=== PATIENT | male | born 1955 | race Caucasian/White ===

== ENCOUNTER 2018-12-03 08:33 | Inpatient (IN) | payer MEDICARE, OTHER ==
[2018-12-03] MEDS ORDERED: ALPRAZolam 0.5 MG TAB PO PRN (10:08)
[2018-12-03] MEDS ORDERED: NITROGLYCERIN SL TABS 0.4 MG TAB SUBLINGUAL PRN ×2 (10:08→11:53)
[2018-12-03] MEDS ORDERED: ATORVASTATIN 80 MG TAB PO STA (10:08)
[2018-12-03] MEDS ORDERED: ASPIRIN 325 MG TAB PO STA (10:08)
[2018-12-03] MEDS ORDERED: ALPRAZolam 0.25 MG TAB PO PRN (10:08)
[2018-12-03] MEDS ORDERED: SODIUM CHLORIDE 0.9% 1,000 ML in EMPTY BAG 1 BAG IV ONE (10:08)
[2018-12-03] MEDS ORDERED: LIDOCAINE 1% INJ 10MG/ML (20 ML MDV) SQ ONE (11:20)
[2018-12-03] MEDS ORDERED: HYDROmorphone 1 MG/ML 1 ML SYRINGE IVP ONE (11:20)
[2018-12-03] MEDS ORDERED: NITROGLYCERIN 1000MCG/10ML SYRINGE INTRACORON ONE ×2 (11:26→11:41)
[2018-12-03] MEDS ORDERED: BIVALIRUDIN 250 MG in SODIUM CHLORIDE 0.9% 50 ML IV ONE (11:26)
[2018-12-03] MEDS ORDERED: BIVALIRUDIN BOLUS 250 MG/50 ML IV ONE (11:26)
[2018-12-03] MEDS ORDERED: MIDAZOLAM (PF) 2 MG/2 ML VIAL IVP ONE (11:37)
[2018-12-03] MEDS ORDERED: CLOPIDOGREL 75 MG TAB PO ONE (11:41)
[2018-12-03] MEDS ORDERED: IOPAMIDOL-370 100ML BTL INJ ONE (11:43)
[2018-12-03] MEDS ORDERED: ZOLPIDEM 5 MG TAB PO PRN (11:53)
[2018-12-03] MEDS ORDERED: RX INFO: IV CONTRAST WAS GIVEN 1 EACH MISC MISCELLANE PRN (11:53)
[2018-12-03] MEDS ORDERED: ATROPINE SULFATE 0.1 MG/ML 10ML SYRINGE IV PRN (11:53)
[2018-12-03] MEDS ORDERED: SODIUM CHLORIDE 0.9% 1,000 ML IV SCH (12:00)
--- NOTE | 2018-12-03 12:17 | PTCA ---
PERCUTANEOUSTRANS CORORONARY ANGIOGRAPHY DATE OF SERVICE: 11/23/2018 PERFORMING PHYSICIAN: Santo Fernandez MD, Social Work Administrator. PROCEDURE PERFORMED: Successful stenting of the PDA branch of circumflex using the 2.5 x 18 mm Xience LATONYA with good angiographic results. INDICATION: This is a 63-year-old gentleman with history of hypertension and dyslipidemia who was experiencing symptoms of shortness of breath. He underwent right and left heart catheterization. The right heart catheterization showed moderate pulmonary hypertension. The left heart catheterization revealed severe disease involving the PDA branch of the left circumflex. He was brought today to undergo a PCI of the PDA. APPROACH: Right common femoral artery. COMPLICATION: None. LEVEL OF SEDATION: Moderate with sedation length of 30 minutes. PROCEDURE DESCRIPTION: Please refer to diagnostic heart catheterization was performed at [facility] for access prescription. Anticoagulation was initiated using Angiomax. Subsequently, I did engage the left main using XB3.5 guide. After that I wired the left circumflex using a whisper wire. I did PTCA ballooning using 2.0 x 12 mm balloon before I deployed 2.5 x 18 mm Xience LATONYA where the stent was positioned under fluoroscopy guidance and deployed under 14 atmospheres for 20 seconds with the following angiogram showing good results. The procedure was completed without any complication. POSTPROCEDURE MANAGEMENT: 1. Dual anti-platelet therapy. 2. Risk factors modifications. 3. Follow up with the patient. DEJAN / JADYN: [id number] /
[2018-12-03] MEDS: MAG HYDROX/AL HYDROX/SIMETH 30 ML CUP PO PRN ×2 (12:20→12:30)
[2018-12-03] MEDS ORDERED: hydrALAZINE HCL 20 MG/ML 1 ML VIAL IVP STA (12:27)
[2018-12-03 12:57] LABS: Glucose,Whole Blood 122 mg/dL (75-99)
[2018-12-03] MEDS: ACETAMINOPHEN TAB 500 MG TAB PO PRN ×2 (14:10→21:17)
[2018-12-03] MEDS ORDERED: ATORVASTATIN 80 MG TAB PO SCH (21:00)
[2018-12-03] MEDS: hydrALAZINE HCL 50 MG TAB PO SCH (21:18)
[2018-12-04] MEDS: IPRATROPIUM-ALBUTEROL 3 ML NEB INHALATION PRN ×2 (00:46→07:40)
[2018-12-04 05:13] VITALS: TEMP 97.8
[2018-12-04 05:26] LABS: Basophils # (A) 0.1 k/uL (0-0.2); Basophils % (A) 1 %; Eosinophils # (A) 0.2 k/uL (0-0.7); Eosinophils % (A) 3 %; HGB 13.2 gm/dL (13.0-17.5); Lymphocytes # (A) 1.8 k/uL (1.0-4.8); Lymphocytes % (A) 19 %; MCH 31.6 pg (25.0-35.0); MCHC 32.2 g/dL (31.0-37.0); MCV 98.1 fL (80.0-100.0); Mean Platelet Volume 7.9; Monocytes # (A) 0.5 k/uL (0-1.0); Monocytes % (A) 5 %; Neutrophils # (A) 6.8 k/uL (1.3-7.7); Neutrophils % (A) 71 %; Platelet Count 178 k/uL (150-450); RBC 4.18 m/uL (4.30-5.90); RDW 14.1 % (11.5-15.5); WBC 9.6 k/uL (3.8-10.6)
[2018-12-04 05:58] LABS: African American GFR (CKD) >90 (>60 ml/min/1.73 sqM); Blood Urea Nitrogen 16 mg/dL (9-20); Calcium 8.8 mg/dL (8.4-10.2); Carbon Dioxide 28 mmol/L (22-30); Glucose 112 mg/dL (74-99)
[2018-12-04 06:09] LABS: Anion Gap 6 mmol/L; Chloride 104 mmol/L (98-107); Potassium 4.3 mmol/L (3.5-5.1); Sodium 138 mmol/L (137-145)
[2018-12-04] MEDS ORDERED: PANTOPRAZOLE 40 MG TABLET PO SCH (07:30)
[2018-12-04 07:52] VITALS: PULSE 65
[2018-12-04] MEDS: hydrALAZINE HCL 50 MG TAB PO SCH (08:30)
[2018-12-04] MEDS ORDERED: hydrALAZINE HCL 50 MG TAB PO SCH (09:00)
[2018-12-04] MEDS ORDERED: METOPROLOL SUCCINATE (ER) 50 MG TAB.ER.24H PO SCH (09:00)
[2018-12-04] MEDS ORDERED: ASPIRIN 325 MG TAB PO SCH (09:00)
[2018-12-04] MEDS ORDERED: PREGABALIN 75 MG CAP PO SCH (09:00)
[2018-12-04] MEDS ORDERED: HYDROCHLOROTHIAZIDE 25 MG TAB PO SCH (09:00)
[2018-12-04 11:14] VITALS: BP 171/76; RESP 34
[2018-12-04] MEDS ORDERED: CLOPIDOGREL 75 MG TAB PO SCH (11:54)
--- NOTE | 2018-12-04 19:01 | DS ---
DISCHARGE SUMMARY ADMISSION DATE: December 03, 2018. DISCHARGE DATE: December 04, 2018 BRIEF HISTORY: This is a 63-year-old gentleman who was experiencing symptoms of shortness of breath with exertion and underwent a heart catheterization at [facility] and that revealed severe disease involving the PDA branch of the RCA of the left circumflex. He was transferred to [facility] where he underwent successful stenting of the PDA branch of the left circumflex with good angiographic results and without any complication. On followup with him today, he seems to be doing good and he is asymptomatic. He is going to be discharged on dual anti-platelet therapy and I will follow up with the patient in the office. MMBIANCA / IJN: [id number] /
== END 2018-12-04 11:25 | disposition home or self-care (01) | DRG 247 ==
LOC: 3SCARD 11:41 → 2SICU 12:06
PROVIDERS: ADMIT Internal Medicine Interventional Cardiology; ATTEND Internal Medicine Interventional Cardiology
PROC: 027034Z Dilation of Coronary Artery, One Artery with Drug-eluting Intraluminal Device, Percutaneous Approach (ICD-10-PCS; principal; 2018-12-03 11:00)
DX: I25.10 Atherosclerotic heart disease of native coronary artery without angina pectoris (principal); I10 Essential (primary) hypertension; Z87.891 Personal history of nicotine dependence; Z79.899 Other long term (current) drug therapy
CPT/HCPCS: 80048; 85025; 94640; 94760; C1874

== ENCOUNTER → 2019-07-18 | Outpatient (CLI) | payer MEDICARE, OTHER | END | disposition home or self-care (01) | LOC: LABPAT 12:53 | PROVIDERS: ATTEND Orthopaedic Surgery | DX: Z01.812 Encounter for preprocedural laboratory examination (principal) | CPT/HCPCS: 87070 ==

== ENCOUNTER 2019-10-28 11:04 | Inpatient (IN) | payer MEDICARE, OTHER ==
[2019-10-27 10:59] VITALS: BMI 33.0
--- NOTE | 2019-10-27 14:20 | HP ---
HISTORY AND PHYSICAL CHIEF COMPLAINT: Right knee pain. HISTORY OF PRESENT ILLNESS: The patient is a 64-year-old retired gentleman who presents with progressive right knee pain secondary to osteoarthrosis despite conservative measures. He has tried previous injections and medications with only partial temporary relief. He notes the pain limits his normal function and activities. PAST MEDICAL HISTORY: Seen for asthma, coronary artery disease, depression, reflux disease, hypercholesterolemia, COPD, and hypertension. PAST SURGICAL HISTORY: Significant for cardiac stent placement, along with multiple procedures on the right arm for necrotizing fasciitis. CURRENT MEDICATIONS: Lisinopril, Prevacid, Celebrex, Lyrica, and Tylenol No.3 along with Plavix. He denies drug allergies. FAMILY HISTORY: Significant for cancer. SOCIAL HISTORY: Significant for previous tobacco use in addition to social alcohol use. 16 POINT REVIEW OF SYSTEMS: Otherwise reviewed and is noncontributory. PHYSICAL EXAMINATION: On examination, the patient is approximately 5 foot 10, 220 pounds of endomorphic habitus. HEENT: Exam is nonfocal. NECK: Supple. He has painless passive motion of the right hip. Straight leg raise is negative. Active motion right knee -14 to 95 degrees of flexion. He is tender about the medial and lateral joint line. He has a moderate effusion. Collaterals are stable, Delbert is negative, Domenic's is equivocal. He has genu varum alignment. His distal neurovascular appears intact in the right lower extremity. Weightbearing notch lateral and Merchant views of the right knee obtained in the office show severe medial compartment narrowing. IMPRESSION: 1. Right knee severe medial compartment osteoarthrosis. 2. History of chronic obstructive pulmonary disease. 3. History of coronary artery disease, status post stenting. RECOMMENDATIONS: I talked to the patient at length regarding his condition and treatment options. At this point, he is quite symptomatic and limited because of pain related to his osteoarthrosis despite conservative measures. After thorough discussion, he opts to proceed with surgery. We will plan to proceed with right total knee arthroplasty. Risks and benefits were discussed at length in layman's terms. Will reinstitute his Plavix postoperatively. MMODL / IJN: [id number] /
[~2019-10-28 11:04] MED LIST: ACETAMINOPHEN TAB 500 MG TAB PO ONE; DEXAMETHASONE SOD PHOSPHATE 10 MG/ML 1 ML VIAL IV ONE; HYDROmorphone 0.5 MG/0.5 ML SYRINGE IVP PRN; LACTATED RINGERS 1,000 ML IV SCH; LIDOCAINE 1% (10MG/ML) FOR IV START INTRADERMA PRN; MELOXICAM 7.5 MG TAB PO ONE; ONDANSETRON 4 MG/2 ML VIAL IVP ONE; SCOPOLAMINE 1.5MG/72HR PATCH TRANSDERM ONE; TRANEXAMIC ACID 1,000 MG in SODIUM CHLORIDE 0.9% 100 ML IVPB ONE
[2019-10-28] MEDS ORDERED: ALBUTEROL NEBULIZED 2.5 MG/3 ML INHALATION ONE (11:42)
[2019-10-28 11:50] LABS: Basophils # (A) 0.1 k/uL (0-0.2); Basophils % (A) 1 %; Eosinophils # (A) 0.3 k/uL (0-0.7); Eosinophils % (A) 3 %; HCT 44.4 % (39.0-53.0); HGB 14.7 gm/dL (13.0-17.5); Lymphocytes # (A) 1.8 k/uL (1.0-4.8); Lymphocytes % (A) 16 %; MCH 32.3 pg (25.0-35.0); MCHC 33.2 g/dL (31.0-37.0); MCV 97.4 fL (80.0-100.0); Mean Platelet Volume 8.2; Monocytes # (A) 0.5 k/uL (0-1.0); Monocytes % (A) 5 %; Neutrophils # (A) 8.3 k/uL (1.3-7.7); Neutrophils % (A) 75 %; Platelet Count 262 k/uL (150-450); RBC 4.55 m/uL (4.30-5.90); RDW 12.5 % (11.5-15.5); WBC 11.1 k/uL (3.8-10.6)
[2019-10-28] MEDS ORDERED: MIDAZOLAM 2 MG/2 ML VIAL IVP ONE (11:54)
[2019-10-28 11:57] LABS: INR 0.9 (<1.2); Prothrombin Time 9.6 sec (9.0-12.0)
[2019-10-28 12:00] LABS: Potassium 4.5 mmol/L (3.5-5.1)
[2019-10-28] MEDS ORDERED: WATER FOR INJECTION, STERILE 10 ML VIAL IV ONE (12:10)
[2019-10-28] MEDS ORDERED: MIDAZOLAM 2 MG/2 ML VIAL ONE (12:10)
[2019-10-28] MEDS ORDERED: fentaNYL (PF) 50 MCG/ML 2 ML AMP ONE (12:10)
[2019-10-28] MEDS ORDERED: SODIUM CHLORIDE 0.9% 100 ML BAG ONE (12:10)
[2019-10-28] MEDS ORDERED: TRANEXAMIC ACID 1,000 MG/10 ML VIAL ONE (12:10)
[2019-10-28] MEDS ORDERED: PROPOFOL 10 MG/ML 20 ML VIAL IV ONE (12:10)
[2019-10-28] MEDS ORDERED: ePHEDrine SULFATE/0.9% NACL/PF 50 MG/5 ML SYRINGE IV ONE (12:10)
[2019-10-28] MEDS ORDERED: ceFAZolin 3,000 MG in SODIUM CHLORIDE 0.9% IRRIGATIO 3,000 ML IRRIGATION ONE (12:20)
[2019-10-28] MEDS ORDERED: ROPIVACAINE 0.2%-NS ON-Q PUMP 1,090 MG, EMPTY PAIN BALL 1 EACH MISCELLANE PRN (12:33)
--- NOTE | 2019-10-28 12:33 | P.ANPRN ---
Procedure Note - Anesthesia - Nerve Block Performed Right Adductor Canal Infusion Date of Procedure: 10/28/19 Procedure Start Time: 11:53 Procedure Stop Time: 12:02 Location of Patient: PreOp Indication: Acute Post-Operative Pain, Requested by Surgeon Sedation Type: Sedate with meaningful contact maintained Preparation: Sterile Prep, Sterile Dressing Position: Supine Catheter: Indwelling Needle Types: Pajunk Needle Gauge: 21 Ultrasound used to visualize needle placement: Yes Ultrasound used to observe medication spread: Yes Blood Aspirated: No Pain Paresthesia on Injection Noted: No Resistance on Injection: Normal Image Stored and Saved: Yes Events: Uneventful and Well Tolerated (ropivacaine 0.5% 20 mls)
[2019-10-28] MEDS ORDERED: ROPIVACAINE 246.25 MG, EPINEPHrine 0.5 MG, KETOROLAC 30 MG, cloNIDine HCL/PF 80 MCG, WA... MISCELLANE ONE ×5 (12:46)
[2019-10-28] MEDS ORDERED: LACTATED RINGERS 1,000 ML IV ONE ×3 (13:04→15:24)
[2019-10-28] MEDS ORDERED: MAGNESIUM HYDROXIDE 2,400 MG/10 ML CUP PO PRN (13:57)
[2019-10-28] MEDS ORDERED: HYDROcodone/APAP 5-325MG 1 EACH TAB PO PRN (13:57)
[2019-10-28] MEDS ORDERED: traMADol 50 MG TAB PO PRN (13:57)
[2019-10-28] MEDS ORDERED: ONDANSETRON 4 MG/2 ML VIAL IVP PRN (13:57)
[2019-10-28] MEDS ORDERED: NALOXONE 0.4 MG/ML 1 ML VIAL IV PRN (13:57)
[2019-10-28] MEDS ORDERED: ACETAMINOPHEN TAB 325 MG TAB PO PRN (13:57)
--- NOTE | 2019-10-28 14:22 | P.OP ---
Date of Procedure: 10/28/19 Preoperative Diagnosis: Right knee severe tricompartmental osteoarthrosis Postoperative Diagnosis: Same Procedure(s) Performed: Right total knee arthroplastycruciate retainingcemented Implants: [employer] Oxinium size 8 cemented femoral component, size 7 cemented tibial component, 9 mm articular surface, 38 mm cemented patellar component. This is a cruciate retaining implant. Anesthesia: regional, local, spinal Surgeon: Serg Sarmiento Instrumentation Designer #1: Jason Ng Estimated Blood Loss (ml): 50 Pathology: other (Bone fragments) Condition: stable Disposition: PACU Indications for Procedure: The patient's a 64-year-old gentleman who presents with progressive right knee pain secondary to osteoporosis despite conservative measures. A discussion of the risks and benefits of operative intervention versus continued conservative measures was made with patient. He opted to proceed with surgery. Operative risks to include infection, neurovascular injury, blood clots, possible component loosening, possible component failure need for subsequent procedures was discussed. Informed consent was obtained. Operative Findings: As below Description of Procedure: The patient was brought to the operating room, and after induction of spinal anesthesia the right lower extremity was prepped and draped in a normal fashion. The tourniquet was inflated to 270 mmHg. A longitudinal incision extending 3 finger breaths above the superior pole of the patella extending to the medial aspect the tibial tubercle was then made. The skin and subcutaneous tissues were divided sharply. Electrocautery was used for hemostasis. A medial parapatellar arthrotomy was then performed. The medial soft tissues to include the superficial and deep portions of the medial collateral ligament as well as the medial hamstring tendons were elevated subperiosteally. The proximal medial tibia osteophytes were carefully removed. The patella was everted. The knee was flexed. A portion of the retropatellar fat pad was excised sharply. The anterior cruciate ligament was sacrificed. A starting hole was made in the distal femur 1 cm anterior to the posterior cruciate origin. An intramedullary femoral guide was gently inserted planning on 5 valgus distal cut with 9 mm distal resection. The cutting block was pinned in place. The distal cut was then made. The posterior referencing sizing guide was utilized. 3 of external rotation was built into the system and verified off the trans- epicondylar axis and the posterior condyles. I felt size 8 was most appr opriate. The cutting block was pinned in place. The anterior, posterior, and chamfer cuts were then made. The bone fragments were removed. The trial size 8 femoral component was then placed and was fully seated. There was good anterior to posterior and medial to lateral fit. The distal peg holes were then drilled. The trial component was then removed. Attention was then paid towards prepar ing the proximal tibia. An extra medullary guide was utilized in line with the tibial shaft and second metatarsal distally. A 3 posterior slope was planned. I planned on 2 mm resection from the medial compartment. The cutting block was pinned in place. The proximal tibial cut was then made. The bone was removed in one fragment. The remnants of the medial and lateral menisci were excised t he capsule junction with electrocautery. The tibia sized most appropriately at size 7. The posterior osteophytes off the distal femur were carefully removed with a curved osteotome. The trial tibial and femoral components were placed along with a 9 millimeters articular surface. I was able to obtain full flexion and extension with good stability with varus and valgus stress. After several flexion and extension cycles, the tibial rotation was marked with electrocautery in line with the medial one third of the tibial tubercle. Attention was then paid towards preparing the patella. A patella reamer was utilized taking this down to 14 mm of bone stock. A good flush cut was made. The patella sized most appropriately at 38 millimeters. The peg holes were then drilled. The trial component was placed. The knee was taken through a range of motion. I had good patellofemoral tracking with no hands technique. The trial components were then removed. The tibia was prepared in the appropriate rotation with appropriate drill and keel punch. The flexion and extension gaps were checked and felt to be symmetric. The posterior soft tissues were injected with ropivacaine. The bony surfaces were prepared with pulsatile lavage and dried. The deep tibial component was then cemented in place and was fully seated. Excess cement was removed. The femoral component was cemented in place and was fully seated. Again excess cement was removed. The trial 9 millimeters surface was then inserted in the knee was put in full extension. The patella component was cemented in place. After the cement had sufficiently hardened, the knee was again taken through a range of motion. Again there was good stability in flexion and extension with varus and valgus stress. The trial articular surface was then removed. The final articular surface was placed and was impacted. Care was taken to avoid any soft tissue interposition. Pulsatile lavage was again utilized. The tourniquet was deflated with approximately 70 minutes total tourniquet time. There was minimal drainage therefore a deep drain was not placed. The medial parapatellar arthrotomy was then closed with #2 Ethibond suture. The subcutaneous tissues were reapproximated interrupted 2-0 Vicryl sutures. The skin was reapproximated with 3-0 subarticular strata fix suture. Skin tape and adhesive was applied. A sterile dressing was applied. The patient was then awoken from sedation and transferred to recovery room in good condition. Blood loss was estimated at 50 milliliters. No complications were incurred. Sponge and needle counts were correct at the end the case. Carlos DAVILA assisted during the major components this case to include exposure, bone resection, and implantation.
--- NOTE | 2019-10-28 15:19 | XR ---
EXAMINATION TYPE: XR knee limited RT DATE OF EXAM: 10/28/2019 CLINICAL HISTORY: Postoperative evaluation Two views of the right knee are submitted. Identified are changes of total knee arthroplasty with femoral and tibial components appearing well seated. Postsurgical soft tissue changes are noted. Alignment is anatomic.
[2019-10-28] MEDS: LACTATED RINGERS 1,000 ML IV SCH ×2 (16:36→23:45)
--- NOTE | 2019-10-28 17:51 | P.CONS ---
History of Present Illness - Reason for Consult Consult date: 10/28/19 Medical management Requesting physician: Serg Sarmiento - Chief Complaint Medical management - History of Present Illness 64-year-old male with PMH of CAD post stent, hypertension and COPD presents to [facility] for elective surgery. He underwent right total knee arthroplasty. [facility] physicians has been consulted for medical management of this patient. Patient was seen and examined. No acute events since surgery. Patient reports slight 2 out of 10 knee pain in his right knee. He otherwise has no complaints. He has not urinated since his surgery. He has not had a bowel movement but states has passed gas. He denies any headache, lower extremity edema, nausea or vomiting, fever or chills, cough, chest pain, shortness of breath or palpitation s, changes in urination or bowel habits. No changes in appetite or weight. He denies any dizziness, numbness/weakness/tingling of the extremities. His vital signs are currently stable on 2 L nasal cannula. CBC shows leukocytosis of 11.1. Review of Systems Pertinent positives and negatives as discussed in HPI, a complete review of systems was performed and all other systems are negative. Past Medical History Past Medical History: Coronary Artery Disease (CAD), Cancer, Chest Pain / Angina, COPD, GERD/Reflux, Hypertension, Liver Disease, Osteoarthritis (OA), Respiratory Disorder Additional Past Medical History / Comment(s): skin ca, hx. necrotizing fascitis right arm with multiple surgeries, (2017) Hepatitis C in remission History of Any Multi-Drug Resistant Organisms: None Reported Past Surgical History: Appendectomy, Heart Catheterization With Stent, Orthopedic Surgery, Tonsillectomy Additional Past Surgical History / Comment(s): right shoulder surg., multiple surgeries on right arm for necrotizing fascitis Past Anesthesia/Blood Transfusion Reactions: No Reported Reaction Date of Last Stent Placement:: November 2018 Past Psychological History: No Psychological Hx Reported Smoking Status: Former smoker Additional Past Alcohol Use History / Comment(s): quit smoking 2017, smoked on & off since age of 13, had quit before, 1ppd Past Drug Use History: Marijuana Additional Drug Use History / Comment(s): daily use for pain - Past Family History Father Family Medical History: Cancer Additional Family Medical History / Comment(s): prostrate cancer Mother Family Medical History: Cancer Medications and Allergies Home Medications Medication Instructions Recorded Confirmed Type Albuterol Inhaler (Mhu) [Ventolin 1 - 2 puff INHALATION RT-Q6H PRN 12/03/18 10/28/19 History Hfa Inhaler (Mhu)] Beclomethasone Dip 80 Mcg/Puff 2 puff INHALATION BID 12/03/18 10/28/19 History [Qvar 80 mcg] Hydrochlorothiazide 25 mg PO DAILY 12/03/18 10/28/19 History Lansoprazole 15 mg PO DAILY 12/03/18 10/28/19 History Metoprolol Succinate [Toprol Xl] 50 mg PO DAILY 12/03/18 10/28/19 History Pregabalin [Lyrica] 150 mg PO BID 12/03/18 10/28/19 History hydrALAZINE HCL 50 mg PO TID 12/03/18 10/28/19 History Clopidogrel [Plavix] 75 mg PO DAILY #90 tab 12/04/18 10/28/19 Rx Atorvastatin [Lipitor] 10 mg PO HS 10/27/19 10/28/19 History Ipratropium/Albuterol Sulfate 2 puff INHALATION BID 10/27/19 10/28/19 History [Combivent Respimat Inhaler] Allergies Allergy/AdvReac Type Severity Reaction Status Date / Time No Known Allergies Allergy Verified 10/28/19 11:30 Physical Exam Vitals: Vital Signs Temp Pulse Pulse Resp BP Pulse Ox 10/28/19 16:52 98.0 F 73 17 160/79 94 L 10/28/19 16:19 59 L 16 159/74 95 10/28/19 16:04 57 L 16 147/72 96 10/28/19 15:36 58 L 16 162/72 94 L 10/28/19 15:06 63 16 142/72 97 10/28/19 14:49 62 16 141/74 94 L 10/28/19 14:34 69 16 146/74 94 L 10/28/19 14:19 97.5 F L 63 16 159/74 92 L 10/28/19 12:06 59 L 16 151/75 100 10/28/19 11:50 61 10/28/19 11:29 97.1 F L 78 18 189/93 94 L Intake and Output 10/28/19 10/28/19 10/28/19 06:59 14:59 22:59 Intake Total 1351 700 Output Total 50 Balance 1301 700 Intake: IV 1351 700 Output: Estimated Blood Loss 50 Other: Weight 105.7 kg 105.7 kg General: [non toxic], [no distress], [appears at stated age] Derm: [warm], [dry] Head: [atraumatic], [normocephalic], [symmetric] Eyes: [EOMI], [no lid lag], [anicteric sclera] Mouth: [no lip lesion], [mucus membranes moist] Cardiovascular: [S1S2 reg], [no murmur], [positive DP pulse bilateral], Lungs: [Slight end expiratory wheezing bilateral], [no rhonchi, no rales] , [no accessory muscle use] Abdominal: [soft], [ nontender to palpation], [no guarding], [no appreciable organomegaly] Ext: [no gross muscle atrophy], [no edema], [no contractures], [right knee wrapped] Neuro: [ CN II-XI grossly intact], [no focal neuro deficits] Psych: [Alert], [oriented], [appropriate affect] Results CBC & Chem 7: 10/28/19 11:36 10/28/19 11:36 Labs: Abnormal Lab Results - Last 24 Hours (Table) 10/28/19 Range/Units 11:36 WBC 11.1 H (3.8-10.6) k/uL Neutrophils # 8.3 H (1.3-7.7) k/uL Assessment and Plan Assessment: Leukocytosis COPD CAD post stent Hypertension Patient has leukocytosis of 11.1 with neutrophilia. He is afebrile with no signs of infection. This is likely reactive. We will continue to monitor for any signs of infection. He will be started on his home medication of Qvar. Start albuterol neb as needed for shortness of breath and wheezing. Supplemental O2 to maintain O2 saturation greater than 92%. We will restart Lipitor and metoprolol for his CAD. His stent was placed in November 2018. His hassock maker is Dr. Rooney. Patient will be on Xarelto for 12 days, will need to discuss with Cardiology Dr. Fernandez regarding continuation of Plavix and/or Aspirin during that time. His blood pressure is 160/79. He will be continued on hydrochlorothiazide, metoprolol and hydralazine. His vitals are be monitored and medications adjusted as necessary. DVT prophylaxis: [Xarelto] Discussed with: [Patient] Anticipated discharge: [1-2 days] Anticipated discharge place: [Home] A total of [35] minutes was spent on the care of this complex patient more than 50% of the time was spent in counseling and care coordination. Patient names his Carmen decision maker if he can't make decisions for himself. Patient would like to be FULL CODE.
[2019-10-28] MEDS: SENNOSIDES-DOCUSATE SODIUM 1 EACH TAB PO SCH (20:19)
[2019-10-28] MEDS: hydrALAZINE HCL 50 MG TAB PO SCH (20:19)
[2019-10-28] MEDS: PREGABALIN 75 MG CAP PO SCH (20:19)
[2019-10-28] MEDS: ATORVASTATIN 10 MG TAB PO SCH (20:19)
[2019-10-28] MEDS: HYDROmorphone 0.5 MG/0.5 ML SYRINGE IVP PRN (20:20)
[2019-10-28] MEDS: FLUTICASONE 110 MCG INHALER INHALATION SCH (21:01)
[2019-10-28] MEDS: ALBUTEROL NEBULIZED 2.5 MG/3 ML INHALATION PRN (21:01)
--- NOTE | 2019-10-29 06:42 | P.PN ---
Progress Note - Text Progress Note Date: 10/29/19 The patient is doing well status post total knee replacement. Pain is well con trolled by a combination of local anesthetic infusion through the adductor canal catheter and oral analgesics however his pain gets worse with weightbearing activities. I asked the patient to request a [place] half an hour before his scheduled physical therapy to help with his pain during physical therapy session.. There are no signs of infection around the catheter skin entry site. The local anesthetic infusion will be continued as per protocol.
[2019-10-29] MEDS: PANTOPRAZOLE 40 MG TABLET PO SCH (07:49)
[2019-10-29] MEDS: hydrALAZINE HCL 50 MG TAB PO SCH ×3 (07:50→21:43)
[2019-10-29] MEDS: RIVAROXABAN 10 MG TAB PO SCH (07:51)
[2019-10-29] MEDS: METOPROLOL SUCCINATE (ER) 50 MG TAB.ER.24H PO SCH (07:51)
[2019-10-29] MEDS: HYDROCHLOROTHIAZIDE 25 MG TAB PO SCH (07:51)
[2019-10-29] MEDS: PREGABALIN 75 MG CAP PO SCH ×2 (07:51→21:43)
[2019-10-29] MEDS: HYDROcodone/APAP 5-325MG 1 EACH TAB PO PRN ×3 (07:52→21:43)
[2019-10-29 08:01] LABS: Basophils % (A) 0 %; Eosinophils % (A) 0 %; HCT 37.9 % (39.0-53.0); HGB 11.9 gm/dL (13.0-17.5); Lymphocytes # (A) 0.9 k/uL (1.0-4.8); Lymphocytes % (A) 6 %; MCH 31.3 pg (25.0-35.0); MCHC 31.4 g/dL (31.0-37.0); MCV 99.5 fL (80.0-100.0); Mean Platelet Volume 8.2; Monocytes # (A) 0.7 k/uL (0-1.0); Monocytes % (A) 5 %; Neutrophils # (A) 12.9 k/uL (1.3-7.7); Neutrophils % (A) 88 %; Platelet Count 192 k/uL (150-450); RBC 3.81 m/uL (4.30-5.90); RDW 12.6 % (11.5-15.5); WBC 14.6 k/uL (3.8-10.6)
[2019-10-29] MEDS: ALBUTEROL NEBULIZED 2.5 MG/3 ML INHALATION PRN ×3 (08:22→20:25)
[2019-10-29] MEDS: FLUTICASONE 110 MCG INHALER INHALATION SCH ×2 (08:23→20:25)
--- NOTE | 2019-10-29 10:56 | P.PN ---
Subjective Progress Note Date: 10/29/19 Principal diagnosis: arthritis Patient is a 64-year-old male with known coronary artery disease last in November [address] Fernandez, COPD, and hypertension who presented for elective total knee arthroplasty. He tolerated the procedure well. He is struggling with some postoperative pain. Patient seen and examined at bedside. He is having some pain in his knee. He states that his pain is an 8-9 out of 10 currently but the [place] did help s omewhat. He reports that the majority of his pain is from a cramp that starts in his buttock and goes to his anemia. He also has another cramp in his leg. He has a history of sciatica and does take Lyrica on a chronic basis. He was wheezing significantly on his walk with physical therapy, however he states that this is typical for his COPD and is unchanged. He denies any chest pain. No nausea, headache, or diarrhea. General: non toxic, no distress, appears at stated age, obese Derm: Dressing in place over right knee, warm, dry Head: atraumatic, normocephalic, symmetric Eyes: EOMI, no lid lag, anicteric sclera Mouth: no lip lesion, mucus membranes moist Cardiovascular: S1S2 reg, no murmur, positive posterior tibial pulse bilateral, Lungs: Ease bilateral, no rhonchi, no rales , no accessory muscle use Abdominal: soft, nontender to palpation, no guarding, no appreciable organomegaly Ext: no gross muscle atrophy, no edema, no contractures Neuro: CN II-XI grossly intact, no focal neuro deficits Psych: Alert, oriented, appropriate affect Patient is a 64-year-old male status post right total knee arthroplasty Leukocytosis, reactive -Follow CBC -No signs of infection at this time Coronary artery disease -Resume Plavix. Patient is not chronically on aspirin. Discussed with patient that he will be on both Xarelto and Plavix and to monitor for signs and symptoms of bleeding and call if problems. -Continue with Lipitor and Toprol COPD without exacerbation -Resume home Qvar and Combivent regiment GERD -PPI HTN, elevated due to pain - continue home medications. Patient is medically optimized for discharge at the discretion of orthopedic surgery. Home Rx addresssed. Objective - Vital Signs Vital signs: Vital Signs Temp 98.3 F 06/17/20 07:36 Pulse 76 10/29/19 09:23 Resp 18 10/29/19 09:23 BP 157/73 10/29/19 09:23 Pulse Ox 93 L 10/29/19 07:36 Intake & Output 10/28/19 10/29/19 10/29/19 18:59 06:59 18:59 Intake Total 2050 200 Output Total 50 600 Balance 2000 200 Weight 105.7 kg Intake: IV 2050 Oral 200 Output: Urine 600 Estimated Blood Loss 50 Other: # Voids 1 1 - Labs CBC & Chem 7: 10/29/19 06:54 10/28/19 11:36 Labs: Abnormal Lab Results - Last 24 Hours (Table) 10/28/19 10/29/19 Range/Units 11:36 06:54 WBC 11.1 H 14.6 H (3.8-10.6) k/uL RBC 3.81 L (4.30-5.90) m/uL Hgb 11.9 L (13.0-17.5) gm/dL Hct 37.9 L (39.0-53.0) % Neutrophils # 8.3 H 12.9 H (1.3-7.7) k/uL Lymphocytes # 0.9 L (1.0-4.8) k/uL
[2019-10-29] MEDS ORDERED: DIAZEPAM 2 MG TAB PO STA (12:35)
--- NOTE | 2019-10-29 12:38 | P.PN ---
Subjective Progress Note Date: 10/29/19 Principal diagnosis: Status post right total knee arthroplasty Patient evaluated bedside, he is resting comfortably. He is having some pain more involving the leg and the knee itself. He has a history of sciatica. Denies any chest pain or acute shortness of breath. Objective - Vital Signs Vital signs: Vital Signs Temp 98.3 F 10/29/19 07:36 Pulse 76 10/29/19 09:23 Resp 18 10/29/19 09:23 BP 157/73 10/29/19 09:23 Pulse Ox 93 L 10/29/19 07:36 Intake & Output 10/28/19 10/29/19 10/29/19 18:59 06:59 18:59 Intake Total 2050 200 Output Total 50 600 Balance 2000 200 Weight 105.7 kg Intake: IV 2050 Oral 200 Output: Urine 600 Estimated Blood Loss 50 Other: # Voids 1 1 - Exam Right lower extremity: Incision is clean, dry, and intact. The exofin fusion tape is in good condition. There is minimal soft tissue swelling and ecchymosis surrounding the medial and lateral aspects of the incision. Calf is soft, no tenderness with palpation. Plantar flexion, dorsiflexion, EHL, FHL are intact. Sensory exam to light touch throughout the extremity is intact, dorsal pedis pulses 2+. - Labs CBC & Chem 7: 10/29/19 06:54 10/28/19 11:36 Labs: Abnormal Lab Results - Last 24 Hours (Table) 10/29/19 Range/Units 06:54 WBC 14.6 H (3.8-10.6) k/uL RBC 3.81 L (4.30-5.90) m/uL Hgb 11.9 L (13.0-17.5) gm/dL Hct 37.9 L (39.0-53.0) % Neutrophils # 12.9 H (1.3-7.7) k/uL Lymphocytes # 0.9 L (1.0-4.8) k/uL Assessment and Plan Assessment: Status post right total knee arthroplasty Plan: Pain control, plan for discharge home on oral medication GI and DVT prophylaxis, will resume Plavix discharge Wound care instructions discussed Home physical therapy and nursing after discharge Plan for discharge home today pending pain control Time with Patient: Less than 30
[2019-10-29] MEDS: HYDROmorphone 0.5 MG/0.5 ML SYRINGE IVP PRN ×2 (15:58→18:54)
[2019-10-29] MEDS: SENNOSIDES-DOCUSATE SODIUM 1 EACH TAB PO SCH (21:43)
[2019-10-29] MEDS: ATORVASTATIN 10 MG TAB PO SCH (21:43)
[2019-10-30] MEDS: HYDROmorphone 0.5 MG/0.5 ML SYRINGE IVP PRN (02:01)
[2019-10-30] MEDS: LACTATED RINGERS 1,000 ML IV SCH (05:27)
[2019-10-30] MEDS: HYDROCHLOROTHIAZIDE 25 MG TAB PO SCH (07:55)
[2019-10-30] MEDS: METOPROLOL SUCCINATE (ER) 50 MG TAB.ER.24H PO SCH (07:55)
[2019-10-30] MEDS: RIVAROXABAN 10 MG TAB PO SCH (07:55)
[2019-10-30] MEDS: PREGABALIN 75 MG CAP PO SCH (07:55)
[2019-10-30] MEDS: hydrALAZINE HCL 50 MG TAB PO SCH (07:56)
[2019-10-30] MEDS: PANTOPRAZOLE 40 MG TABLET PO SCH (07:56)
[2019-10-30] MEDS: HYDROcodone/APAP 5-325MG 1 EACH TAB PO PRN ×2 (08:02→13:26)
[2019-10-30 08:11] VITALS: BP 154/68; RESP 18
[2019-10-30] MEDS: FLUTICASONE 110 MCG INHALER INHALATION SCH (08:28)
[2019-10-30] MEDS: ALBUTEROL NEBULIZED 2.5 MG/3 ML INHALATION PRN ×2 (08:28→11:33)
[2019-10-30 11:45] VITALS: PULSE 82
[2019-10-30 11:48] LABS: HCT 35.3 % (39.0-53.0); HGB 11.3 gm/dL (13.0-17.5); MCH 31.8 pg (25.0-35.0); MCHC 32.1 g/dL (31.0-37.0); MCV 99.2 fL (80.0-100.0); Mean Platelet Volume 7.8; Platelet Count 193 k/uL (150-450); RBC 3.56 m/uL (4.30-5.90); RDW 12.7 % (11.5-15.5); WBC 11.7 k/uL (3.8-10.6)
--- NOTE | 2019-10-30 11:48 | P.PN ---
Subjective Progress Note Date: 10/30/19 Principal diagnosis: Status post right total knee arthroplasty Patient evaluated bedside, he is resting comfortably. Pain control is better today. Denies any chest pain or acute shortness of breath. Objective - Vital Signs Vital signs: Vital Signs Temp 100.1 F H 10/30/19 06:52 Pulse 82 10/30/19 11:45 Resp 18 10/30/19 08:00 BP 154/68 10/30/19 06:52 Pulse Ox 91 L 10/30/19 06:52 Intake & Output 10/29/19 10/30/19 10/30/19 18:59 06:59 18:59 Intake Total 630 Output Total 100 300 Balance 530 -300 Intake: Oral 630 Output: Urine 100 100 Other 200 Other: # Voids 1 1 1 # Bowel Movements 1 - Exam Right lower extremity: Incision is clean, dry, and intact. The exofin fusion tape is in good conditio n. There is minimal soft tissue swelling and ecchymosis surrounding the medial and lateral aspects of the incision. Calf is soft, no tenderness with palpation. Plantar flexion, dorsiflexion, EHL, FHL are intact. Sensory exam to light touch throughout the extremity is intact, dorsal pedis pulses 2+. - Labs CBC & Chem 7: 10/29/19 06:54 10/28/19 11:36 Assessment and Plan Assessment: Status post right total knee arthroplasty Plan: Pain control, plan for discharge home on oral medication GI and DVT prophylaxis, will resume Plavix discharge Wound care instructions discussed Home physical therapy and nursing after discharge Plan for discharge home today Time with Patient: Less than 30
--- NOTE | 2019-10-30 11:50 | P.DS ---
Providers Date of admission: 10/28/2019 Expected date of discharge: 10/30/19 Attending physician: Serg Sarmiento Primary care physician: Luis Nichole MD Hospital Course: Date of admission: 10/28/2019 Date of discharge: 10/30/2019 Admission diagnosis: Status post right total knee arthroplasty Discharge diagnosis: Same Attending physician: Dr. Sarmiento Surgical procedures: Right total knee arthroplasty Brief history: Patient is a 64-year-old male with a history of progressive primary right knee osteoarthritis. At this point patient has failed conservative treatment measures and has opted to proceed with a elective right total knee arthroplasty. Hospital course: Details of patient's surgery can be found in operative report. Patient tolerated the procedure well and was subsequently transported to orthopedic floor. Patient's orthopeidc and medical care was provided daily. Patient had daily laboratory tests performed for evaluation of overall blood counts. Patient had daily physical therapy to include strengthening range of motion as well as education with walker ambulation. Patient had daily CPM usage as part of their physical therapy program. Patient was treated with Xarelto for their postoperative DVT prophylaxis during their inpatient stay. Patient was noted to have a relatively uneventful postoperative course. Patient reported satisfactory pain control with oral pain medications by postoperative day 0. P atient showed satisfactory progress with physical therapy. Patient moved steadily through the program and had no difficulty meeting the goals by postoperative day 2. Given patient's otherwise satisfactory course and having met physical therapy goals, plan is to discharge patient home on postoperative day 2. Discharge condition/disposition: Patient will be discharged home in stable condition. Discharge medications: Instructions are given on resumption of patient's normal daily medications per primary care recommendation, in addition patient will be prescribed [place] 5 mg/325 mg Discharge instructions: 1. Wound care and infection precautions, keep incision dry and covered while showering], no lotions, creams, moisturizers. No soaking, tubs, pools, hottubs. Do not scrub over the incision. 2. Weight-bear [as tolerated] with walker / cane until follow-up. 3. Ice and elevate when necessary. Do not exceed 20 minutes per hour with ice pack. 4. Utilize compression sleeve until seen at first follow up appointment. 5. Visiting nursing care. 6. Home physical therapy [including home CPM]. 7. Pain meds and anticoagulants per prescription. 8. Pain medication has potential to cause constipation. Increase oral fluid and fiber intake. Contact primary care provider if you have not had a bowel movement within 48 hours after discharge 9. No anti-inflammatory medication until discussed at first post operative visit, this including Motrin, Aleve, Mobic, Diclofenac. 10. Follow up in office at 2 weeks postop with Carlos Ng PA-C 11. Follow up with your primary care doctor 7-10 days after discharge. 12. Contact [facility] with any questions, . Procedures: right total knee arthroplasty Patient Condition at Discharge: Good Plan - Discharge Summary Discharge Rx Participant: Yes New Discharge Prescriptions: New Hydrocodone/Acetaminophen [[place] 5-325] 1 - 2 each PO Q6HR PRN #56 tab PRN Reason: Pain Continue Metoprolol Succinate [Toprol Xl] 50 mg PO DAILY Lansoprazole 15 mg PO DAILY Albuterol Inhaler (Mhu) [Ventolin Hfa Inhaler (Mhu)] 1 - 2 puff INHALATION RT-Q6H PRN PRN Reason: Dyspnea hydrALAZINE HCL 50 mg PO TID Pregabalin [Lyrica] 150 mg PO BID Hydrochlorothiazide 25 mg PO DAILY Beclomethasone Dip 80 Mcg/Puff [Qvar 80 mcg] 2 puff INHALATION BID Clopidogrel [Plavix] 75 mg PO DAILY #90 tab Ipratropium/Albuterol Sulfate [Combivent Respimat Inhaler] 2 puff INHALATION BID Atorvastatin [Lipitor] 10 mg PO HS Discharge Medication List Albuterol Inhaler (Mhu) [Ventolin Hfa Inhaler (Mhu)] 1 - 2 puff INHALATION RT- Q6H PRN 12/03/18 [History] Beclomethasone Dip 80 Mcg/Puff [Qvar 80 mcg] 2 puff INHALATION BID 12/03/18 [History] Hydrochlorothiazide 25 mg PO DAILY 12/03/18 [History] Lansoprazole 15 mg PO DAILY 12/03/18 [History] Metoprolol Succinate [Toprol Xl] 50 mg PO DAILY 12/03/18 [History] Pregabalin [Lyrica] 150 mg PO BID 12/03/18 [History] hydrALAZINE HCL 50 mg PO TID 12/03/18 [History] Clopidogrel [Plavix] 75 mg PO DAILY #90 tab 12/04/18 [Rx] Atorvastatin [Lipitor] 10 mg PO HS 10/27/19 [History] Ipratropium/Albuterol Sulfate [Combivent Respimat Inhaler] 2 puff INHALATION BID 10/27/19 [History] Hydrocodone/Acetaminophen [[place] 5-325] 1 - 2 each PO Q6HR PRN #56 tab 10/30/19 [Rx] Follow up Appointment(s)/Referral(s): Luis Nichole MD [Primary Care Provider] - 1 Week (office will call with appointment time) [facility], [NON-STAFF] - Jason Ng PAC [PHYSICIAN RV SERVICER] - 11/12/19 3:10 pm Patient Instructions/Handouts: *Surgery [facility] - On-Q Pain Pump Discharge Instructions, Knee Replacement (DC) Activity/Diet/Wound Care/Special Instructions: Orthopedic Discharge Instructions: 1. Wound care and infection precautions, keep incision dry and covered while showering, no lotions, creams, moisturizers. No soaking, pools, hot tubs. Do not scrub over incision. 2. Weight-bear as tolerated with walker / cane until follow-up. 3. Ice and elevate when necessary. Do not exceed 20 minutes per hour with ice pack. 4. Utilize compression sleeve until seen at first follow up appointment. 5. Pain meds and anticoagulants per prescription. 6. Pain medication has potential to cause constipation. Increase oral fluid and fiber intake. Contact primary care provider if you have not had a bowel movement within 48 hours after discharge. 7. No anti-inflammatory medication until discussed at first post operative visit, this including Motrin, Aleve, Mobic, Diclofenac. 8. Follow up in office at 2 weeks postop with Carlos Ng PA-C 9. Follow up with your primary care doctor 7-10 days after discharge. 10. Contact [facility] with any questions, [phone]. 11. Please call [facility] once home to arrange delivery of the continuous passive motion machine (CPM): [phone] Discharge Disposition: HOME WITH HOME HEALTH SERVICES
[2019-10-30 13:22] VITALS: TEMP 98.2
--- NOTE | 2019-10-30 15:22 | P.PN ---
Subjective Progress Note Date: 10/30/19 Principal diagnosis: arthritis Patient is a 64-year-old male with known coronary artery disease last in November [address] Fernandez, COPD, and hypertension who presented for elective total knee arthroplasty. He tolerated the procedure well. He was struggling with some postoperative pain. Patient seen and examined at bedside. Pain is much better today, no unusual nausea, vomiting, or shortness of breath, feeling well and wants to go home. General: non toxic, no distress, appears at stated age, obese Derm: Dressing in place over right knee, warm, dry Head: atraumatic, normocephalic, symmetric Eyes: EOMI, no lid lag, anicteric sclera Mouth: no lip lesion, mucus membranes moist Cardiovascular: S1S2 reg, no murmur, positive posterior tibial pulse bilateral, Lungs: Decreased bilateral, no rhonchi, no rales , no accessory muscle use Abdominal: soft, nontender to palpation, no guarding, no appreciable organomegaly Ext: no gross muscle atrophy, no edema, no contractures Neuro: CN II-XI grossly intact, no focal neuro deficits Psych: Alert, oriented, appropriate affect Patient is a 64-year-old male status post right total knee arthroplasty Leukocytosis, reactive -Follow CBC -No signs of infection at this time Acute blood loss anemia - anticipated outcome of surgery - no need to continue to follow Coronary artery disease -Resume Plavix. Patient is not chronically on aspirin. Discussed with patient that he will be on both Xarelto and Plavix and to monitor for signs and symptoms of bleeding and call if problems. -Continue with Lipitor and Toprol COPD without exacerbation -Resume home Qvar and Combivent regiment GERD -PPI HTN, elevated due to pain - continue home medications. Patient is medically optimized for discharge at the discretion of orthopedic surgery. Home Rx addresssed. Objective - Vital Signs Vital signs: Vital Signs Temp 98.2 F 10/30/19 13:21 Pulse 82 10/30/19 11:45 Resp 18 10/30/19 08:00 BP 154/68 10/30/19 06:52 Pulse Ox 91 L 10/30/19 06:52 Intake & Output 10/29/19 10/30/19 10/30/19 18:59 06:59 18:59 Intake Total 630 540 Output Total 100 300 Balance 530 240 Intake: Oral 630 540 Output: Urine 100 100 Other 200 Other: # Voids 1 1 2 # Bowel Movements 1 - Labs CBC & Chem 7: 10/30/19 11:35 10/28/19 11:36 Labs: Abnormal Lab Results - Last 24 Hours (Table) 10/30/19 Range/Units 11:35 WBC 11.7 H (3.8-10.6) k/uL RBC 3.56 L (4.30-5.90) m/uL Hgb 11.3 L (13.0-17.5) gm/dL Hct 35.3 L (39.0-53.0) %
== END 2019-10-30 14:43 | disposition home health service (06) | DRG 470 ==
LOC: OR 11:04 → 4SSUR 13:54 → OBSVTOIN 10-29 13:23 → OR 10-29 13:40
PROVIDERS: ADMIT Orthopaedic Surgery; ATTEND Orthopaedic Surgery
PROC: 0SRC069 Replacement of Right Knee Joint with Oxidized Zirconium on Polyethylene Synthetic Substitute, Cemented, Open Approach (ICD-10-PCS; principal; 2019-10-28 12:30)
DX: M17.11 Unilateral primary osteoarthritis, right knee (principal); D62 Acute posthemorrhagic anemia; D72.829 Elevated white blood cell count, unspecified; E78.00 Pure hypercholesterolemia, unspecified; I10 Essential (primary) hypertension; I25.10 Atherosclerotic heart disease of native coronary artery without angina pectoris; J44.9 Chronic obstructive pulmonary disease, unspecified; K21.9 Gastro-esophageal reflux disease without esophagitis; F32.9 Major depressive disorder, single episode, unspecified; M54.30 Sciatica, unspecified side; B18.2 Chronic viral hepatitis C; Z79.02 Long term (current) use of antithrombotics/antiplatelets; Z79.899 Other long term (current) drug therapy; Z87.891 Personal history of nicotine dependence; Z95.5 Presence of coronary angioplasty implant and graft; Z90.49 Acquired absence of other specified parts of digestive tract; Z80.42 Family history of malignant neoplasm of prostate
CPT/HCPCS: 64448; 76942; 80051; 85025; 85027; 85610; 88300; 94640

== ENCOUNTER → 2022-09-06 | Outpatient (CLI) | payer MEDICARE | END | disposition home or self-care (01) | LOC: LABPAT 14:25 | PROVIDERS: ATTEND Orthopaedic Surgery | DX: Z01.812 Encounter for preprocedural laboratory examination (principal); M17.12 Unilateral primary osteoarthritis, left knee; Z22.322 Carrier or suspected carrier of Methicillin resistant Staphylococcus aureus | CPT/HCPCS: 87070 ==

== ENCOUNTER 2023-03-06 10:07 | Day surgery (SDC) | payer MEDICARE ==
[2023-03-02 11:04] VITALS: BMI 34.0
[~2023-03-06 10:07] MED LIST changes: -ACETAMINOPHEN TAB 500 MG TAB PO ONE; -DEXAMETHASONE SOD PHOSPHATE 10 MG/ML 1 ML VIAL IV ONE; -HYDROmorphone 0.5 MG/0.5 ML SYRINGE IVP PRN; -LIDOCAINE 1% (10MG/ML) FOR IV START INTRADERMA PRN; -MELOXICAM 7.5 MG TAB PO ONE; -ONDANSETRON 4 MG/2 ML VIAL IVP ONE; -SCOPOLAMINE 1.5MG/72HR PATCH TRANSDERM ONE; -TRANEXAMIC ACID 1,000 MG in SODIUM CHLORIDE 0.9% 100 ML IVPB ONE
[2023-03-06 10:57] VITALS: TEMP 97.8
[2023-03-06] MEDS ORDERED: PROPOFOL 10 MG/ML 20 ML VIAL IV ONE (12:03)
[2023-03-06] MEDS ORDERED: LIDOCAINE 1% INJ 10MG/ML (20 ML MDV) ONE (12:03)
--- NOTE | 2023-03-06 12:22 | P.PCN ---
Date of Procedure: 03/06/23 Procedure(s) Performed: BRIEF HISTORY: Patient is a 68-year-old pleasant may scheduled for an elective colonoscopy as a part of screening for colon cancer and history of colon polyps. PROCEDURE PERFORMED: Colonoscopy with snare polypectomy PREOPERATIVE DIAGNOSIS: Screening for colon cancer/history of colon polyps. IV sedation per Anesthesia. PROCEDURE: After informed consent was obtained, the patient, was brought into the endoscopy unit. IV sedation was administered by Anesthesia under continuous monitoring. Digital rectal examination was normal. Initially the Olympus CF-160 flexible video colonoscope was then inserted in the rectum, gradually advanced into the cecum without any difficulty. Careful examination was performed as the scope was gradually being withdrawn. Ileocecal valve and the appendiceal orifice were visualized and appeared normal. Prep was excellent. Mucosa of the cecum, ascending colon, appeared normal. In the transverse colon there was a 7 mm sessile polyp removed by snare polypectomy. Rest of the transverse colon, descending colon, sigmoid colon, and rectum appeared normal. Scattered left sided diverticulosis Retroflexion was performed in the rectum and no lesions were seen. The patient tolerated the procedure well. IMPRESSION: 7 mm transverse colon polyp status post snare polypectomy Scattered sigmoid diverticulosis RECOMMENDATIONS: Findings of this examination were discussed with the patient as well as his family. He was advised to follow with the biopsy results. If the biopsy results adenoma he can have a repeat colonoscopy in 5 years..
[2023-03-06 12:58] VITALS: BP 165/83; PULSE 61; RESP 16
== END 2023-03-06 12:55 | disposition home or self-care (01) ==
LOC: ORWHC2ENDO 10:07
PROVIDERS: ATTEND Internal Medicine Gastroenterology
DX: Z12.11 Encounter for screening for malignant neoplasm of colon (principal); D12.3 Benign neoplasm of transverse colon; K57.30 Diverticulosis of large intestine without perforation or abscess without bleeding; I25.10 Atherosclerotic heart disease of native coronary artery without angina pectoris; I10 Essential (primary) hypertension; E78.5 Hyperlipidemia, unspecified; J44.9 Chronic obstructive pulmonary disease, unspecified; M19.90 Unspecified osteoarthritis, unspecified site; K21.9 Gastro-esophageal reflux disease without esophagitis; Z79.83 Long term (current) use of bisphosphonates; Z79.899 Other long term (current) drug therapy; Z79.51 Long term (current) use of inhaled steroids; Z95.5 Presence of coronary angioplasty implant and graft; Z86.010 Personal history of colon polyps; Z88.0 Allergy status to penicillin; Z88.8 Allergy status to other drugs, medicaments and biological substances
CPT/HCPCS: 88305; 45385; J2001; J2704